=== PATIENT | female | born 1990 | race African-American/Black ===

== ENCOUNTER → 2020-11-15 09:16 | Outpatient (CLI) | payer OTHER ==
[~2020-11-15] VITALS: Ht 165.1 cm; Wt 82.1 kg
[2020-11-15 12:01] VITALS: Ht 165.1 cm; Wt 82.1 kg
== END | disposition home or self-care (01) ==
LOC: D.FANS 09:00
PROVIDERS: ATTEND Student in an Organized Health Care Education/Training Program
DX: O24.419 Gestational diabetes mellitus in pregnancy, unspecified control (principal)

== ENCOUNTER → 2020-11-21 10:10 | Outpatient (CLI) | payer OTHER | END | disposition home or self-care (01) | LOC: D.LDO 10:10 | DX: O24.419 Gestational diabetes mellitus in pregnancy, unspecified control (principal) ==

== ENCOUNTER 2020-11-28 10:47 | Outpatient (CLI) | payer OTHER ==
[2020-11-15 12:01] VITALS: BMI 30.1
== END 2020-11-28 14:28 | disposition home or self-care (01) ==
LOC: D.LDO 10:47
PROVIDERS: ATTEND Student in an Organized Health Care Education/Training Program
DX: O24.419 Gestational diabetes mellitus in pregnancy, unspecified control (principal)

== ENCOUNTER 2020-12-01 09:32 | Outpatient (CLI) | payer OTHER ==
[2020-11-15 12:01] VITALS: BMI 30.1
== END 2020-12-01 17:39 | disposition home or self-care (01) ==
LOC: D.LDO 09:32
PROVIDERS: ATTEND Student in an Organized Health Care Education/Training Program
DX: O24.419 Gestational diabetes mellitus in pregnancy, unspecified control (principal)

== ENCOUNTER 2020-12-05 15:18 | Outpatient (CLI) | payer OTHER ==
[2020-11-15 12:01] VITALS: BMI 30.1
== END 2020-12-05 15:50 | disposition home or self-care (01) ==
LOC: D.LDO 15:18
PROVIDERS: ATTEND Student in an Organized Health Care Education/Training Program
DX: O24.419 Gestational diabetes mellitus in pregnancy, unspecified control (principal)

== ENCOUNTER 2020-12-08 09:41 | Outpatient (CLI) | payer OTHER ==
[2020-11-15 12:01] VITALS: BMI 30.1
[2020-12-08] MEDS ORDERED: PRENAVITE1 TAB PO (11:42)
[2020-12-12 19:32] VITALS: BMI 29.8
== END 2020-12-09 12:30 | disposition home or self-care (01) ==
LOC: D.LDO 09:41 → D.LD 22:31 → D.LDO 12-09 12:30
PROVIDERS: ATTEND Student in an Organized Health Care Education/Training Program
DX: O24.419 Gestational diabetes mellitus in pregnancy, unspecified control (principal)

== ENCOUNTER 2020-12-12 09:50 | Inpatient (IN) | payer OTHER ==
[2020-12-12] VITALS (14 sets, daily range): BP systolic 130–173; BP diastolic 75–98; Ht 165.1 cm; Wt 81.2 kg
[~2020-12-12] VITALS: Ht 165.1 cm; Wt 81.2 kg
--- NOTE | ~2020-12-12 | OP ---
PATIENT NAME: SAMIA AHN MEDICAL RECORD: [id number] :90 LOCATION:[id number] ADMISSION DATE:12/12/20 SURGEON: LUCIANA HERRMANN DO DATE OF OPERATION: 12/12/2020 PREOPERATIVE DIAGNOSIS: Nonreassuring heart tracing. POSTOPERATIVE DIAGNOSES: Nonreassuring heart tracing, possible placental abruption. PRIMARY SURGEON: Luciana Herrmann DO TOGGLE PRESS OPERATOR SURGEON: Dr. Spaulding. ANESTHESIA: Spinal. PROCEDURE: Primary low transverse section via Pfannenstiel incision. FINDINGS: Male , weight 6 pounds 12.4 ounces, Apgars 0, 5, 8, delivered at 12:10 p.m. Placenta delivered spontaneously without manual removal, although no bloody fluid or clots behind the placenta was noted. Clear amniotic fluid. Uterus with multiple small subserosal fibroids. Normal appearing fallopian tubes and ovaries bilaterally. SPECIMENS: Placenta and cord blood. ESTIMATED BLOOD LOSS: 800 cc. IV FLUIDS: 1 liter. URINE OUTPUT: 500 cc, clear urine. COMPLICATIONS: None. CONDITION: Stable. DESCRIPTION OF PROCEDURE: The risks, benefits, alternatives and indications of the procedure were discussed with the patient. She voiced understanding of the procedure and signed the consent. She was taken to the OR where spinal anesthesia was administered and found to be adequate. She was placed in the dorsal supine position with a leftward tilt. She was prepped and draped in the normal sterile fashion. A Pfannenstiel skin incision was made with a scalpel and carried down to the underlying layer of the fascia. The fascia was incised in the midline and extended laterally. The rectus muscle was dissected off the fascia bluntly. The rectus muscle was down to the level of the peritoneum. The peritoneum was identified and noted to be free of adherent bowel and entered bluntly. The peritoneum was further with gentle traction. The bladder blade was inserted and the uterus was then incised in a transverse fashion in the lower uterine segment with a scalpel. The incision was extended with cephalad and caudad traction. The 's head was brought to the incision and the infant delivered without difficulty. Mouth and nose were suctioned. Cord was clamped and cut and the infant was handed off to the awaiting pediatric team. The placenta delivered spontaneously without manual removal, although no bloody fluid or clots were noted behind the placenta with the possibility of suspected placental abruption. The placenta was sent to OPERATIVE REPORT [id number] SAMIA AHN pathology. The uterus was exteriorized and a moist lap was used to assure removal of placenta membranes. The hysterotomy was closed with 0 Vicryl in a running locked fashion with double layer closure with good hemostasis. There were small subserosal fibroids on the uterus noted. The posterior cul-de-sac was irrigated with warm sterile water and suctioned. The uterus, tubes and ovaries were returned back to the abdominal cavity. A moist laparotomy sponge was used to assure complete removal of blood clots and fluid from the abdominal cavity. The hysterotomy was reinspected and noted to be hemostatic. The rectus muscle was closed with 2-0 Monocryl in a running fashion. The fascial incision was closed with 0 Vicryl in a running fashion with good hemostasis. The skin was closed in a subcuticular fashion with 3-0 Monocryl with Steri-Strips covering. All needle, lap, sponge, and instrument counts were correct times 2. The patient tolerated the procedure well and she was taken to the recovery room in stable condition. TRANSINT:[id number] Voice Confirmation ID: [id number] DOCUMENT ID: [id number] LUCIANA HERRMANN DO CC: [id number] DICTATION DATE: 12/14/20 1315 TAXIMETER REPAIRER: 12/14/20 1356 DIS IN 12/14/20 [facility] [address] [place] [address]
[~2020-12-12 09:50] MED LIST: PRENAVITE1 TAB PO
[2020-12-12] MEDS ORDERED: GLUCOPHAGE500 MG PO (10:34)
--- NOTE | 2020-12-12 12:38 | NUR ---
STAT C SECTION DUE TO NON REASSURING HEART RATE.
[2020-12-12 12:48] LABS: HEMATOCRIT 37.7 % (36.0-48.0); HEMOGLOBIN 12.8 g/dL (12-16); MCH 30.1 pg (26.0-34.0); MCV 88.7 fL (80.0-100.0); MEAN PLATELET VOLUME 10.1 fL (7.4-10.4); RBC 4.25 10x6/uL (4.00-5.40); RDW 13.3 % (11.5-14.5); WBC 7.2 10x3/uL (4.8-10.8)
--- NOTE | 2020-12-12 13:45 | NUR ---
RECEIVED PT IN ROOM 1273 PER RR. PT BED LOCKED AND PLACED IN LOW POSITION. PT AWAKE. AAO X 3. VS NOTED. BP NOTED AND NOT WITHIN PT PRE-OP BP. PT STATES PAIN OF "8-9" ON 0-10 PAIN SCALE. HRRR WITHOUT AUDIBLE MURMUR. BBS CLEAR. BS X 4. ABDOMEN SOFT/NON-DISTENDED. ABDOMINAL DRESSING DRY WITHOUT DRAINAGE NOTED. MOD RUBRA LOCHIA NOTED ON PERIPAD. PERIPAD CHANGED. ICE PACK TO INCISION. PT UNABLE TO MOVE LEGS EQUAL TO PRE-OP. SCDS ON BLE. PUMP ON. CASTLE TO GRAVITY DRAINING CLEAR, YELLOW URINE. PIV OF NS WITH PITOCIN 20 UNITS INFUSING AT 125 ML/HR. SITE CLEAR TO LEFT HAND. PT ORIENTED TO ROOM, BED, AND CALL LIGHT. SR UP X 2. CALL LIGHT IN REACH.
--- NOTE | 2020-12-12 13:52 | NUR ---
TORADOL 30 MG GIVEN SIVP OVER 2 MINUTES. PT INSTRUCTED ON MED. VERBALIZES UNDERSTANDING.
--- NOTE | 2020-12-12 13:53 | NUR ---
MORPHINE CAUSTIC LOADER STARTED PER ORDER. PT INSTRUCTED ON MED AND USE OF CAUSTIC LOADER BUTTON. VERBALIZES UNDERSTANDING.
--- NOTE | 2020-12-12 15:16 | NUR ---
DR HERRMANN NOTIFIED OF PT BLOOD PRESSURES. ORDERS RECEIVED.
--- NOTE | 2020-12-12 15:27 | NUR ---
DR HERRMANN PHONES UNIT AFTER REVIEWING MOST RECENT BP, GIVES ORDER TO HOLD LABETALOL FOR NOW AND CONT TO WATCH BP'S.
[2020-12-12 15:53] LABS: BILIRUBIN NEGATIVE (NEGATIVE); KETONE NEGATIVE (NEGATIVE); NITRITE NEGATIVE (NEGATIVE); UROBILINOGEN NORMAL mg/dL (< 2)
[2020-12-12 16:07] LABS: CREATININE - URINE 28.6 mg/dL (30-125); PRO/CRE RATIO URINE 0.3 mg/g; PROTEIN - URINE 9.6 mg/dL (0.0-11.9)
--- NOTE | 2020-12-12 16:25 | NUR ---
SOFTBALL SIZED CLOT NOTED ON PERIPAD. FUNDUS FIRM AT U/2. RUBRA LOCHIA MOD AMT. NO CLOTS EXPRESSED ON FUNDAL MASSAGE. PERICARE DONE. CHUX AND TOWELS CHANGED. PT MOVES SLOWLY IN BED. DR HERRMANN IN ROOM. VIEWS LOCHIA AMT. ABDOMINAL DRESSING SOILED FROM LOCHIA. DR HERRMANN RE-DRESSES INCISION WITH ABD PAD AND PAPER TAPE. NO REDNESS, SWELLING OR DRAINAGE NOTED FROM INCISION. PT SHARMAINE WELL.
[2020-12-12 17:26] LABS: CALC OSMOLALITY 274 mosm/kg (275-300); CARBON DIOXIDE 21.4 mmol/L (21.0-32.0); CHLORIDE - SERUM 105 mmol/L (98-107); CREATININE - SERUM 0.5 mg/dL (0.6-1.3); GLUCOSE 88 mg/dL (74-106); POTASSIUM - SERUM 3.9 mmol/L (3.5-5.1); SODIUM 139 mmol/L (136-145); UREA NITROGEN 6 mg/dL (7-18); eGFR NON AFRICAN AMERICAN > 90 mL/min (90-120)
--- NOTE | 2020-12-12 17:30 | NUR ---
PT LYING SUPINE IN BED. FUNDUS FIRM AT U/2. RUBRA LOCHIA SMALL AMT. PERIPAD CHANGED. NO CLOTS NOTED.
[2020-12-12 17:40] LABS: ALBUMIN 2.5 g/dL (3.4-5.0); ALKALINE PHOSPHATASE 107 U/L (30-120); ALT (SGPT) 21 U/L (10-68); BILIRUBIN - TOTAL 0.37 mg/dL (0.2-1.3); LDH 201 U/L (81-234); PROTEIN - SERUM 5.9 g/dL (6.4-8.2)
--- NOTE | 2020-12-12 18:25 | NUR ---
FUNDUS FIRM AT U/2. RUBRA LOCHIA SMALL TO MOD AMT. NO CLOTS EXPRESSED. PERIPAD CHANGED. I/O COMPLETED. ABDOMINAL DRESSING DRY WITHOUT DRAINAGE NOTED.
--- NOTE | 2020-12-12 19:15 | NUR ---
RN TO BEDSIDE. SHIFT ASSESSMENT COMPLETED AT THIS TIME. HR-RRR, PPP, LUNGS CTAB. BOWEL SOUNDS ACTIVE X4. FUNDUS FIRM U/1. NO CLOTS EXPRESSED ON MASSAGE. PERIPAD CHANGED. CASTLE CATHETER BAG EMPTIED. PT DENIES FURTHER NEEDS. BED LOW, WHEELS LOCKED, CALL LIGHT AND PHONE WITHIN REACH, SIDE RAILS UP X2.
--- NOTE | 2020-12-12 19:16 | NUR ---
DR BLACKMON CALLS UNIT REQUESTING PT BE STARTED ON LABETALOL 100MG PO Q 8HRS.
--- NOTE | 2020-12-12 19:48 | NUR ---
CURRENT PITOCIN INFUSION COMPLETE. OLD BAG DOWN, NEW BAG UP TO PRESENT TUBING. PT ON HER CELL PHONE WITH FAMILY DISCUSSING CARE. PT DENIES FURTHER NEEDS AT THIS TIME.
--- NOTE | 2020-12-12 21:48 | NUR ---
RN TO BEDSIDE. TORADOL AND LABETALOL GIVEN PER ORDERS. SEE EMAR FOR ADMINISTRATION. PT DENIES PAIN OR FURTHER NEEDS.
--- NOTE | 2020-12-12 22:07 | NUR ---
MORPHINE DIRECTOR MARKET RESEARCH COMPLETE. SYRINGE CHANGED. PT DENIES PAIN OR ANY FURTHER NEEDS.
--- NOTE | 2020-12-13 | NUR ---
RN TO BEDSIDE. PT DENIES PAIN, DROWSY, BUT EASILY AWAKENS. CASTLE CATH D/C'D WITH CATH TIP INTACT. 600 ML CLEAR YELLOW URINE NOTED IN CASTLE BAG. HEAD BUCKER D/C'D AT THIS TIME AND PIV SL. ADVISED PT TO CALL FOR ASSISTANCE BEFORE GETTING UP TO AMBULATE TO BATHROOM. UNDERSTANDING VERBALIZED. NO FURTHER NEEDS AT THIS TIME. BED LOW, WHEELS LOCKED, CALL LIGHT AND PHONE WITHIN REACH, SIDE RAILS UP X2.
--- NOTE | 2020-12-13 02:28 | NUR ---
PERCOCET 10/325MG X1 TAB GIVEN FOR PAIN RATED 7/10 AT THIS TIME. PT DENIES FURTHER NEEDS OR NEED TO VOID AT THIS TIME. ADVISED PT AGAIN TO CALL FOR ASSISTANCE BEFORE AMB TO BATHROOM. UNDERSTANDING VERBALIZED.
--- NOTE | 2020-12-13 03:50 | NUR ---
PT RINGS CALL LIGHT REQUESTING ASSISTANCE TO GET UP TO THE BATHROOM. RN TO BEDSIDE. PT ASSISTED TO SITTING ON SIDE OF BED. NO C/O DIZZINESS. PT ASSISTED TO STANDING AT BEDSIDE. NO C/O DIZZINESS OR LIGHTHEADEDNESS. PT AMB TO BATHROOM WITH STAND-BY ASSIST. VOIDED 500 ML BLOOD TINGED URINE INTO [place] HAT. PT AMB BACK TO BED PER SELF.
[2020-12-13 04:05] VITALS: BP 142/85
--- NOTE | 2020-12-13 04:07 | NUR ---
MOTRIN 600MG X1 TAB GIVEN PER SCHEDULED ORDER. PT REQUESTS AND RECEIVED SANDWICH TRAY. BOWEL SOUNDS ACTIVE X4. NO FURTHER NEEDS VOICED. WILL CONTINUE TO MONITOR.
--- NOTE | 2020-12-13 06:24 | NUR ---
ROUNDS MADE. PT RESTING ON LEFT SIDE WITH RESPIRATIONS EVEN AND UNLABORED. PT LEFT UNDISTURBED AT THIS TIME.
--- NOTE | 2020-12-13 06:36 | NUR ---
PT AWAKENED WITH SLAB CONDITIONER SUPERVISOR ENTERING THE ROOM. PT DENIES PAIN OR NEED FOR MEDICATION AT THIS TIME.
[2020-12-13 07:08] LABS: BASOPHILS 0.1 % (0-2); EOSINOPHILS 0.2 % (0-7); IMMATURE GRANULOCYTES 0.2 % (0-5); LYMPHOCYTE ABS# 1.81 10x3/uL (1.18-3.74); LYMPHOCYTES 22.5 % (15-50); MCH 28.8 pg (26.0-34.0); MCV 87.3 fL (80.0-100.0); MEAN PLATELET VOLUME 9.7 fL (7.4-10.4); MONOCYTES 10.8 % (2-11); NEUTROPHIL ABS# 5.31 10x3/uL (1.56-6.13); NEUTROPHILS 66.2 % (40-80); PLATELET COUNT 283 10x3/uL (130-400); RDW 13.2 % (11.5-14.5)
[2020-12-13 07:15] LABS: RAPID PLASMA REAGIN Non Reactive (Non Reactive)
[2020-12-13 07:22] LABS: HEMATOCRIT 28.2 % (36.0-48.0); HEMOGLOBIN 9.3 g/dL (12-16); RBC 3.23 10x6/uL (4.00-5.40)
[2020-12-13 07:37] VITALS: BP 136/63
--- NOTE | 2020-12-13 07:44 | NUR ---
SHIFT ASSESSMENT COMPLETED PER FLOWSHEET. VSS. FUNDUS FIRM, MIDLINE AND U2 WITH SMALL AMT RUBRA LOCHIA. NO CLOTS NOTED. LOWER TRANSVERSE ABD INCISION CLEAN DRY AND INTACT, NO DRAINAGE NOTED. REPORTS THAT IS PASSING FLATUS AND VOIDING WITHOUT DIFFICULTY. UP TO BR AT THIS TIME, VOIDED 550 MLS CLEAR LIGHT YELLOW URINE. POC DISCUSSED WITH PT AND PT'S MOTHER, VERBALIZES UNDERSTANDING AND DENIES QUESTIONS. ICE WATER PROVIDED. BED IN LOW POSITION WITH SRUP X2. CALL LIGHT AND PHONE WITHIN REACH.
--- NOTE | 2020-12-13 08:16 | NUR ---
TRAY ORDERED PER PT REQUEST. PAIN 09/28. ICE WATER AND PADS PROVIDED. DENIES ADDITIONAL NEEDS. PT'S MOTHER AT BEDSIDE, SUPPORTIVE AND ATTENTIVE TO PT.
--- NOTE | 2020-12-13 10:42 | NUR ---
C/O ABD AND INCISIONAL DISCOMFORT 03/28. MEDICATED PER EMAR. CONVERSING WITH NICU STAFF ON STATUS. ICE WATER PROVIDED. DENIES ADDITIONAL NEEDS AT THIS TIME. BED IN LOW POSITION WITH SRUP X2. B/P MED HELD D/T B/P.
--- NOTE | 2020-12-13 11:10 | NUR ---
PAIN REASSESSMENT COMPLETED, 02/25, PERCOCET PROVIDED PER PT REQUEST. DENIES ADDITIONAL NEEDS. ICE WATER GIVEN. PT'S MOTHER AT BEDSIDE, SUPPORTIVE AND ATTENTIVE TO PT AND NEEDS.
[2020-12-13 11:13] VITALS: BP 114/67
--- NOTE | 2020-12-13 11:47 | NUR ---
PAIN 4/10. DENIES NEEDS. SITTING ON EDGE OF BED VIEWING INFANT VIA PHONE LINK. BED IN LOW POSITION WITH SRUP X2. CALL LIGHT AND PHONE WITHIN REACH.
[2020-12-13 13:00] VITALS: BP 133/79
--- NOTE | 2020-12-13 13:00 | NUR ---
B/P 133/79. PT REQUESTS TO HOLD B/P MEDS. STATES THAT SHE WAS JUST NOTIFIED THAT [employer] WAS GOING TO COME SEE HER D/T TESTING POSITIVE FOR THC AND HER TESTING POSITIVE DURING PNC, STATES THAT SHE HAD JUST REC'D CALLBACK FROM NICU TELLING HER THAT A MISTAKE HAD BEEN MADE D/T ANOTHER PATIENT WITH SAME NAME. STATES THAT SHE IS "JUST STARTING TO CALM DOWN." UP TO SHOWER, INSTRUCTED ON CHG SOAP USE, VERBALIZES UNDERSTANDING. STATES THAT HER MOTHER WILL ASSIST PRN, VERBALIZES UNDERSTANDING OF BR CALL LIGHT USE. LINENS CHANGED.
--- NOTE | 2020-12-13 14:17 | NUR ---
AMBULATORY ON UNIT. STEADY GAIT NOTED. DENIES NEEDS.
--- NOTE | 2020-12-13 17:08 | NUR ---
RESTING QUIETLY WITH EYES CLOSED. RESP REGULAR AND UNLABORED, NO S/S OF DISTRESS NOTED. BED IN LOW POSITION WITH SRUP X2. CALL LIGHT AND PHONE WITHIN REACH.
[2020-12-13 19:15] VITALS: BP 138/76
--- NOTE | 2020-12-13 19:15 | NUR ---
RN TO BEDSIDE. SHIFT ASSESSMENT COMPLETED AT THIS TIME. SEE FLOWSHEET. HR-RRR, PPP, LUNGS CTAB, BS ACTIVE X4. FUNDUS REMAINS FIRM. SCANT TO SMALL LOCHIA RUBRA REPORTED. NO NEEDS VOICED. WILL CONTINUE TO MONITOR PRN.
--- NOTE | 2020-12-13 20:00 | NUR ---
PT AMB IN HALLWAY. DENIES PAIN OR NEEDS. STEADY GAIT NOTED.
--- NOTE | 2020-12-13 22:15 | NUR ---
TAKINGN OVER CARE OF THIS PT. SHE IS DOING WELL AND TRYING TO SLEEP. HER MOTHER IS IN THE ROOM WITH HER. SHE HAS NO C/O OR NEEDS AT THIS TIME.
--- NOTE | 2020-12-13 22:53 | NUR ---
PT BP 128/72. LABETALOL HELD PER MD ORDER.
[2020-12-14] VITALS: BP 106/52
--- NOTE | 2020-12-14 | NUR ---
IN ROOM FOR VS. NO C/O FROM PT. STILL TRYING TO GO BACK TO SLEEP.
--- NOTE | 2020-12-14 02:39 | NUR ---
PT IS SLEEPING. NO C/O OR NEEDS
[2020-12-14 04:07] VITALS: BP 116/64
--- NOTE | 2020-12-14 04:07 | NUR ---
PT CALLED FOR PAIN MEDS RATING HER PAIN AN 8. PERCOCET 10 GIVEN PO ALONG WITH THE SCHEDULED MOTRIN. SHE STATES SHE WAS VERY HUNGRY. THERE WERE NO SANDWICHES SO I TOOK HER PEANUT BUTTER AND CRACKERS AND PUDDING.
--- NOTE | 2020-12-14 06:49 | NUR ---
PT IS RESTING QUIETLY. NO C/O
--- NOTE | 2020-12-14 07:00 | NUR ---
REPORT RECEIVED FROM Ed MORLEY RN.
[2020-12-14 07:39] VITALS: BP 104/63
--- NOTE | 2020-12-14 07:40 | NUR ---
ASSESSMENT COMPLETED. SEE FLOWSHEET. PT REQUESTS PAIN MEDICATION.
[2020-12-14] MEDS ORDERED: PERCOCET 5-3251 TAB PO (12:59)
--- NOTE | 2020-12-14 13:42 | NUR ---
REVIEWED DISHCARGE INSTRUCTIONS WITH PT. PT. STATES UNDERSTANDING. PRESCRIPTION GIVEN. FOLLOW UP APPOINTMENT GIVEN FOR 12/19/20 @ 0930. PT INSTRUCTED TO COME FASTING TO FOLLOW UP APPOINTMENT FOR BLOOD SUGAR CHECK. PT. REQUESTS PAIN MEDICATION. MEDS GIVEN. PT. DISHCARGED HOME VIA WHEELCHAIR TO [facility].
== END 2020-12-14 13:48 | disposition home or self-care (01) | DRG 786 ==
LOC: D.LDO 09:50 → D.LD 12:37
PROVIDERS: ADMIT Student in an Organized Health Care Education/Training Program; ATTEND Student in an Organized Health Care Education/Training Program
PROC: 10D00Z1 Extraction of Products of Conception, Low, Open Approach (ICD-10-PCS; principal; 2020-12-12 11:00)
DX: O36.8330 Maternal care for abnormalities of the fetal heart rate or rhythm, third trimester, not applicable or unspecified (principal); O60.14X0 Preterm labor third trimester with preterm delivery third trimester, not applicable or unspecified; Z3A.35 35 weeks gestation of pregnancy; Z37.0 Single live birth; D25.9 Leiomyoma of uterus, unspecified; O34.13 Maternal care for benign tumor of corpus uteri, third trimester; R03.0 Elevated blood-pressure reading, without diagnosis of hypertension; O90.89 Other complications of the puerperium, not elsewhere classified

== ENCOUNTER 2020-12-16 12:34 | Emergency (ER) | payer OTHER ==
[~2020-12-16] VITALS: Ht 165.1 cm; Wt 76.4 kg
[~2020-12-16 12:34] MED LIST changes: +GLUCOPHAGE500 MG PO; +PERCOCET 5-3251 TAB PO
[2020-12-16 12:37] VITALS: BP 144/91; Ht 165.1 cm; Wt 76.4 kg
[2020-12-16] MEDS ORDERED: BUTALB-APAP-CA1 EACH PO (13:39)
== END 2020-12-16 13:52 | disposition home or self-care (01) ==
LOC: D.ER 12:34
DX: R51.9 Headache, unspecified (principal)